=== PATIENT | male | born 1990 | race African-American/Black ===

== ENCOUNTER 2022-04-11 23:07 | Emergency (ER) | payer OTHER ==
[~2022-04-11] VITALS: Ht 175.3 cm; Wt 91.0 kg
[2022-04-12 01:17] LABS: BUN/Creatinine Ratio 12.7; Calcium 9.2 mg/dL (8.5-10.1); Potassium 3.6 mmol/L (3.5-5.1)
[2022-04-12] MEDS ORDERED: SODIUM CHLORIDE 0.9% 1,000 ML IV ONE (02:15)
[2022-04-12 03:41] VITALS: BP 141/99
== END 2022-04-12 03:41 | disposition home or self-care (01) ==
LOC: ER 23:07
DX: E11.9 Type 2 diabetes mellitus without complications (principal)
CPT/HCPCS: 36415; 80048; 82962; 96360; 99283; J7030